=== PATIENT | male | born 1980 | race African-American/Black ===

== ENCOUNTER 2016-09-17 12:27 | Emergency (ER) | payer MEDICAID ==
[~2016-09-17] VITALS: Ht 180.3 cm; Wt 105.0 kg
[~2016-09-17 12:27] MED LIST: ASEN5TAB8; BISA-81; DIVA500T3; FAMO-39; KEPP500; SENN8.6T71; TRAM50TA73
[2016-09-17 13:29] LABS: BASOPHILS % 0.9 % (0.0-2.0); HEMATOCRIT. 41.2 % (42.0-52.0); HEMOGLOBIN. 13.9 g/dL (14.0-18.0); MEAN CORPUSCULAR HEMOGLOBIN 27.2 pg (28.0-32.0); MEAN CORPUSCULAR HGB CONC 33.7 g/dL (31.0-37.0); MEAN CORPUSCULAR VOLUME 80.8 fL (80.0-94.0); MEAN PLATELET VOLUME 8.3 fl (7.4-10.4); MONOCYTES % 7.6 % (2.0-8.0); NEUTROPHILS % 60.5 % (40.0-76.0); PLATELET 268 x1000/uL (130-400); RED CELL DISTRIBUTION WIDTH 13.8 % (11.6-14.6); WHITE BLOOD COUNT 6.4 x1000/uL (4.5-11.0)
[2016-09-17 13:33] LABS: CHLORIDE 106 mEq/L (98-107); INDEX HEMOLYSI 1 (1-3); INDEX ICTERIC 1 (1-4); INDEX LIPEMIC 1 (1-3)
[2016-09-17 13:42] LABS: ACETAMINOPHEN < 2 ug/mL (10-30); ALANINE AMINOTRANSFERASE 23 IU/L (13-61); ALBUMIN 3.6 g/dL (3.4-5.0); ANION GAP 14; CALCIUM 8.7 mg/dL (8.5-10.1); CARBON DIOXIDE 26 mEq/L (21-32); ETHANOL BLOOD < 10 mg/dL; UREA NITROGEN BLOOD 11 mg/dL (7-21); VALPROIC ACID 32.6 ug/mL (50-100); eGFR > 60 mL/min (>60)
[2016-09-17] MEDS ORDERED: VALPROIC ACID 250MG CAPSULE PO ONE (15:45)
[2016-09-17 16:21] LABS: CLARITY URINE CLEAR (CLEAR); COLOR URINE YELLOW (YELLOW); GLUCOSE URINE NEGATIVE (NEGATIVE); KETONES URINE NEGATIVE (NEGATIVE); LEUKOCYTE ESTERASE URINE NEGATIVE (NEGATIVE); NITRITE URINE NEGATIVE (NEGATIVE); OCCULT BLOOD URINE NEGATIVE (NEGATIVE); PH URINE 7.5 (4.5-8.0); PROTEIN URINE NEGATIVE (NEGATIVE); SPECIFIC GRAVITY URINE 1.013 (1.005-1.030); UROBILINOGEN URINE 0.2 E.U./dL (0.2-1.0)
[2016-09-17 17:02] LABS: *AMPHETAMINES SCREEN URINE NEGATIVE (NEGATIVE); *BARBITURATES SCREEN URINE NEGATIVE (NEGATIVE); *BENZODIAZEPINES SCREEN URINE NEGATIVE (NEGATIVE); *COCAINE SCREEN URINE NEGATIVE (NEGATIVE); CANNABINOID URINE SCREEN NEGATIVE (NEGATIVE); ECSTASY MDMA SCREEN URINE NEGATIVE (NEGATIVE); METHADONE URINE SCREEN NEGATIVE (NEGATIVE); OPIATES URINE SCREEN NEGATIVE (NEGATIVE); PHENCYCLIDINE URINE SCREEN NEGATIVE (NEGATIVE)
[2016-09-17 19:43] VITALS: BP 131/84
== END 2016-09-18 12:00 | disposition home or self-care (01) ==
LOC: ER 12:27
DX: R07.89 Other chest pain (principal); F91.9 Conduct disorder, unspecified; F79 Unspecified intellectual disabilities; G40.909 Epilepsy, unspecified, not intractable, without status epilepticus; J45.909 Unspecified asthma, uncomplicated; F31.9 Bipolar disorder, unspecified; F20.9 Schizophrenia, unspecified; K21.9 Gastro-esophageal reflux disease without esophagitis; Z88.0 Allergy status to penicillin; Z88.2 Allergy status to sulfonamides
CPT/HCPCS: 36415; 71010; 80053; 80165; 80305; 80307; 80329; 81003; 85025; 93005; 99285; G0482

== ENCOUNTER 2016-09-24 21:07 | Emergency (ER) | payer MEDICAID ==
[~2016-09-24] VITALS: Ht 177.8 cm; Wt 118.0 kg
[2016-09-24 22:41] LABS: CHLORIDE 105 mEq/L (98-107); INDEX HEMOLYSI 1 (1-3); INDEX ICTERIC 1 (1-4); INDEX LIPEMIC 1 (1-3)
[2016-09-24 22:44] LABS: BASOPHILS % 1.2 % (0.0-2.0); EOSINOPHILS % 8.9 % (0.0-5.0); HEMATOCRIT. 40.5 % (42.0-52.0); HEMOGLOBIN. 13.7 g/dL (14.0-18.0); LYMPHOCYTES % 31.2 % (20.0-50.0); MEAN CORPUSCULAR HEMOGLOBIN 27.2 pg (28.0-32.0); MEAN CORPUSCULAR HGB CONC 33.7 g/dL (31.0-37.0); MEAN CORPUSCULAR VOLUME 80.7 fL (80.0-94.0); MEAN PLATELET VOLUME 8.4 fl (7.4-10.4); MONOCYTES % 5.5 % (2.0-8.0); NEUTROPHILS % 53.2 % (40.0-76.0); PLATELET 268 x1000/uL (130-400); RED BLOOD CELL COUNT 5.01 mill/uL (4.7-6.1); RED CELL DISTRIBUTION WIDTH 13.9 % (11.6-14.6); WHITE BLOOD COUNT 7.6 x1000/uL (4.5-11.0)
[2016-09-24 22:49] LABS: ACETAMINOPHEN < 2 ug/mL (10-30); ANION GAP 13; CALCIUM 8.9 mg/dL (8.5-10.1); CARBON DIOXIDE 25 mEq/L (21-32); ETHANOL BLOOD < 10 mg/dL; UREA NITROGEN BLOOD 11 mg/dL (7-21); VALPROIC ACID 44.1 ug/mL (50-100); eGFR > 60 mL/min (>60)
[2016-09-25] MEDS ORDERED: BACITRACIN ZINC OINT UDPKT TOP ONE (00:45)
[2016-09-25 14:35] VITALS: BP 123/67
[2016-09-25 15:11] LABS: *AMPHETAMINES SCREEN URINE NEGATIVE (NEGATIVE); *BARBITURATES SCREEN URINE NEGATIVE (NEGATIVE); *BENZODIAZEPINES SCREEN URINE NEGATIVE (NEGATIVE); *COCAINE SCREEN URINE NEGATIVE (NEGATIVE); CANNABINOID URINE SCREEN NEGATIVE (NEGATIVE); ECSTASY MDMA SCREEN URINE NEGATIVE (NEGATIVE); METHADONE URINE SCREEN NEGATIVE (NEGATIVE); OPIATES URINE SCREEN NEGATIVE (NEGATIVE); PHENCYCLIDINE URINE SCREEN NEGATIVE (NEGATIVE)
== END 2016-09-25 17:16 | disposition home or self-care (01) ==
LOC: ER 21:07
DX: F28 Other psychotic disorder not due to a substance or known physiological condition (principal); S60.811A Abrasion of right wrist, initial encounter; K21.9 Gastro-esophageal reflux disease without esophagitis; J45.909 Unspecified asthma, uncomplicated; F20.9 Schizophrenia, unspecified; F31.9 Bipolar disorder, unspecified; Z88.0 Allergy status to penicillin; Z88.2 Allergy status to sulfonamides; X58.XXXA Exposure to other specified factors, initial encounter; Y93.89 Activity, other specified; Y92.89 Other specified places as the place of occurrence of the external cause; Y99.8 Other external cause status
CPT/HCPCS: 36415; 71010; 80048; 80165; 80305; 80307; 80329; 85025; 93005; 99285; G0482; Z7610

== ENCOUNTER 2016-10-01 08:02 | Emergency (ER) | payer MEDICAID ==
[~2016-10-01] VITALS: Ht 177.8 cm; Wt 110.0 kg
[2016-10-01 10:11] LABS: CLARITY URINE CLEAR (CLEAR); COLOR URINE YELLOW (YELLOW); GLUCOSE URINE NEGATIVE (NEGATIVE); KETONES URINE NEGATIVE (NEGATIVE); LEUKOCYTE ESTERASE URINE NEGATIVE (NEGATIVE); NITRITE URINE NEGATIVE (NEGATIVE); OCCULT BLOOD URINE NEGATIVE (NEGATIVE); PROTEIN URINE NEGATIVE (NEGATIVE); SPECIFIC GRAVITY URINE 1.016 (1.005-1.030); UROBILINOGEN URINE 0.2 E.U./dL (0.2-1.0)
[2016-10-01 10:12] LABS: CHLORIDE 106 mEq/L (98-107); INDEX HEMOLYSI 1 (1-3); INDEX ICTERIC 1 (1-4); INDEX LIPEMIC 1 (1-3)
[2016-10-01 10:13] LABS: BASOPHILS % 1.4 % (0.0-2.0); EOSINOPHILS % 10.2 % (0.0-5.0); HEMATOCRIT. 42.8 % (42.0-52.0); HEMOGLOBIN. 14.4 g/dL (14.0-18.0); LYMPHOCYTES % 37.8 % (20.0-50.0); MEAN CORPUSCULAR HEMOGLOBIN 27.2 pg (28.0-32.0); MEAN CORPUSCULAR HGB CONC 33.6 g/dL (31.0-37.0); MEAN CORPUSCULAR VOLUME 80.9 fL (80.0-94.0); NEUTROPHILS % 43.6 % (40.0-76.0); PLATELET 233 x1000/uL (130-400); RED BLOOD CELL COUNT 5.29 mill/uL (4.7-6.1); WHITE BLOOD COUNT 5.2 x1000/uL (4.5-11.0)
[2016-10-01 10:21] LABS: ACETAMINOPHEN < 2 ug/mL (10-30); ALANINE AMINOTRANSFERASE 26 IU/L (13-61); ALBUMIN 3.5 g/dL (3.4-5.0); ANION GAP 11; CALCIUM 8.7 mg/dL (8.5-10.1); CARBON DIOXIDE 26 mEq/L (21-32); ETHANOL BLOOD < 10 mg/dL; LIPASE 103 IU/L (73-393); UREA NITROGEN BLOOD 10 mg/dL (7-21); eGFR > 60 mL/min (>60)
[2016-10-01 10:38] LABS: *AMPHETAMINES SCREEN URINE NEGATIVE (NEGATIVE); *BARBITURATES SCREEN URINE NEGATIVE (NEGATIVE); *BENZODIAZEPINES SCREEN URINE NEGATIVE (NEGATIVE); *COCAINE SCREEN URINE NEGATIVE (NEGATIVE); CANNABINOID URINE SCREEN NEGATIVE (NEGATIVE); ECSTASY MDMA SCREEN URINE NEGATIVE (NEGATIVE); METHADONE URINE SCREEN NEGATIVE (NEGATIVE); OPIATES URINE SCREEN NEGATIVE (NEGATIVE); PHENCYCLIDINE URINE SCREEN NEGATIVE (NEGATIVE)
[2016-10-01] MEDS ORDERED: BACITRACIN ZINC OINT UDPKT TOP ONE (12:15)
[2016-10-01 14:46] VITALS: BP 130/72
== END 2016-10-01 15:08 | disposition home or self-care (01) ==
LOC: ER 08:06
DX: R10.9 Unspecified abdominal pain (principal); F20.9 Schizophrenia, unspecified; F31.9 Bipolar disorder, unspecified; Z88.0 Allergy status to penicillin; Z88.2 Allergy status to sulfonamides; Z79.899 Other long term (current) drug therapy; K21.9 Gastro-esophageal reflux disease without esophagitis; R62.50 Unspecified lack of expected normal physiological development in childhood
CPT/HCPCS: 36415; 80053; 80305; 80307; 80329; 81003; 83690; 85025; 99284; G0482

== ENCOUNTER 2016-10-08 12:58 | Emergency (ER) | payer MEDICAID ==
[~2016-10-08] VITALS: Ht 180.3 cm; Wt 120.0 kg
[2016-10-08 12:59] VITALS: BP 104/66
[2016-10-08] MEDS ORDERED: BACITRACIN ZINC OINT UDPKT TOP ONE (14:15)
[2016-10-08] MEDS ORDERED: LIDOCAINE HCL 1% 20ML VIAL (Pyxis) INJ INFIL ONE (14:15)
== END 2016-10-08 19:35 | disposition home or self-care (01) ==
LOC: ER 13:13
DX: S51.011A Laceration without foreign body of right elbow, initial encounter (principal); K21.9 Gastro-esophageal reflux disease without esophagitis; F79 Unspecified intellectual disabilities; F31.9 Bipolar disorder, unspecified; R56.9 Unspecified convulsions; Z88.2 Allergy status to sulfonamides; Z88.0 Allergy status to penicillin; X58.XXXA Exposure to other specified factors, initial encounter; Y93.89 Activity, other specified; Y99.8 Other external cause status; Y92.89 Other specified places as the place of occurrence of the external cause
CPT/HCPCS: 12002; 73080; 99284; J3490; X7700

== ENCOUNTER 2016-12-02 20:55 | Emergency (ER) | payer MEDICAID ==
[~2016-12-02] VITALS: Ht 175.3 cm; Wt 113.0 kg
[2016-12-03 00:13] LABS: CLARITY URINE CLEAR (CLEAR); COLOR URINE YELLOW (YELLOW); GLUCOSE URINE NEGATIVE (NEGATIVE); KETONES URINE NEGATIVE (NEGATIVE); LEUKOCYTE ESTERASE URINE NEGATIVE (NEGATIVE); NITRITE URINE NEGATIVE (NEGATIVE); OCCULT BLOOD URINE NEGATIVE (NEGATIVE); PH URINE 8.5 (4.5-8.0); PROTEIN URINE NEGATIVE (NEGATIVE); SPECIFIC GRAVITY URINE 1.011 (1.005-1.030); UROBILINOGEN URINE 0.2 E.U./dL (0.2-1.0)
[2016-12-03 00:25] LABS: *AMPHETAMINES SCREEN URINE NEGATIVE (NEGATIVE); *BARBITURATES SCREEN URINE NEGATIVE (NEGATIVE); *BENZODIAZEPINES SCREEN URINE NEGATIVE (NEGATIVE); *COCAINE SCREEN URINE NEGATIVE (NEGATIVE); CANNABINOID URINE SCREEN NEGATIVE (NEGATIVE); METHADONE URINE SCREEN NEGATIVE (NEGATIVE); OPIATES URINE SCREEN NEGATIVE (NEGATIVE); PHENCYCLIDINE URINE SCREEN NEGATIVE (NEGATIVE)
[2016-12-03] MEDS ORDERED: IBUPROFEN 600MG TABLET PO ONE (00:45)
[2016-12-03 06:37] VITALS: BP 114/71
== END 2016-12-03 06:45 | disposition home or self-care (01) ==
LOC: ER 21:19
DX: S63.501A Unspecified sprain of right wrist, initial encounter (principal); F20.9 Schizophrenia, unspecified; J45.909 Unspecified asthma, uncomplicated; F31.9 Bipolar disorder, unspecified; K21.9 Gastro-esophageal reflux disease without esophagitis; I10 Essential (primary) hypertension; Z88.0 Allergy status to penicillin; Z88.2 Allergy status to sulfonamides; W22.03XA Walked into furniture, initial encounter; Y93.89 Activity, other specified; Y92.89 Other specified places as the place of occurrence of the external cause; Y99.8 Other external cause status
CPT/HCPCS: 29125; 73110; 73130; 80305; 81003; 99285; Z7610

== ENCOUNTER 2017-01-19 00:41 | Emergency (ER) | payer MEDICAID ==
[~2017-01-19] VITALS: Ht 180.3 cm; Wt 98.0 kg
[2017-01-19 04:50] LABS: BASOPHILS % 1.2 % (0.0-2.0); EOSINOPHILS % 6.2 % (0.0-5.0); HEMOGLOBIN. 12.9 g/dL (14.0-18.0); LYMPHOCYTES % 36.6 % (20.0-50.0); MEAN CORPUSCULAR VOLUME 79.5 fL (80.0-94.0); MEAN PLATELET VOLUME 7.9 fl (7.4-10.4); MONOCYTES % 7.4 % (2.0-8.0); NEUTROPHILS % 48.6 % (40.0-76.0); PLATELET 267 x1000/uL (130-400); RED BLOOD CELL COUNT 4.78 mill/uL (4.7-6.1); RED CELL DISTRIBUTION WIDTH 14.2 % (11.6-14.6)
[2017-01-19 05:02] LABS: CARBON DIOXIDE 26 mEq/L (21-32); CHLORIDE 104 mEq/L (98-107)
[2017-01-19 09:06] VITALS: BP 118/70
== END 2017-01-19 09:21 | disposition home or self-care (01) ==
LOC: ER 00:41
DX: F20.9 Schizophrenia, unspecified (principal); K21.9 Gastro-esophageal reflux disease without esophagitis; I10 Essential (primary) hypertension; J45.909 Unspecified asthma, uncomplicated; Z88.0 Allergy status to penicillin; Z86.73 Personal history of transient ischemic attack (TIA), and cerebral infarction without residual deficits; Z88.2 Allergy status to sulfonamides
CPT/HCPCS: 36415; 80053; 83690; 85025; 99284; Z7610

== ENCOUNTER 2017-02-26 22:57 | Inpatient (IN) | payer MEDICAID ==
[~2017-02-26] VITALS: Ht 182.9 cm; Wt 120.8 kg
[2017-02-27] MEDS ORDERED: SODIUM CHLORIDE 0.9% 1,000 ML IV ONE (03:08)
[2017-02-27] MEDS ORDERED: IBUPROFEN 100MG/5ML UDC PO ONE (03:15)
[2017-02-27 03:44] LABS: MEAN CORPUSCULAR VOLUME 77.9 fL (80.0-94.0); MEAN PLATELET VOLUME 7.6 fl (7.4-10.4); PLATELET 361 x1000/uL (130-400); RED BLOOD CELL COUNT 3.86 mill/uL (4.7-6.1); RED CELL DISTRIBUTION WIDTH 13.8 % (11.6-14.6)
[2017-02-27 03:57] LABS: INR 1.4
[2017-02-27 04:04] LABS: CARBON DIOXIDE 26 mEq/L (21-32); CHLORIDE 98 mEq/L (98-107)
[2017-02-27] MEDS ORDERED: VANCOMYCIN 1 G PREMIX 200 ML IV SCH (06:30)
[2017-02-27] MEDS ORDERED: MORPHINE SULFATE 4 MG/ML CPJ (NOT FOR IM USE) IV ONE (06:30)
[2017-02-27 07:05] LABS: CLARITY URINE CLOUDY (CLEAR); COLOR URINE DARK YELLOW (YELLOW); GLUCOSE URINE NEGATIVE (NEGATIVE); KETONES URINE 1+ (NEGATIVE); LEUKOCYTE ESTERASE URINE 1+ (NEGATIVE); NITRITE URINE NEGATIVE (NEGATIVE); OCCULT BLOOD URINE 3+ (NEGATIVE); PH URINE 5.5 (4.5-8.0); PROTEIN URINE 4+ (NEGATIVE); SPECIFIC GRAVITY URINE 1.023 (1.005-1.030)
[2017-02-27] MEDS ORDERED: METHYLPREDNISOLONE SOD SUCC 125 MG/2 ML VIAL IV ONE (08:00)
[2017-02-27] MEDS ORDERED: DOXYCYCLINE HYCLATE 100 MG/VIAL IV ONE (08:00)
[2017-02-27] MEDS ORDERED: DOXYCYCLINE 100MG in DEXTROSE 5% WATER 100ML IV NR (08:17)
[2017-02-27 08:22] LABS: CREATINE KINASE 253 IU/L (39-308)
[2017-02-27 10:53] LABS: PLATELET ESTIMATE NORMAL
[2017-02-27 13:30] VITALS: BP 126/85
[2017-02-27 14:02] VITALS: BP 125/85
[2017-02-27] MEDS ORDERED: MORPHINE SULFATE 4 MG/ML CPJ (NOT FOR IM USE) IV PRN (15:30)
[2017-02-27] MEDS ORDERED: LORAZEPAM 2MG/ML CPJ IV PRN (15:30)
[2017-02-27 16:00] VITALS: BP 126/80
[2017-02-27] MEDS: METHYLPREDNISOLONE SOD SUCC 40 MG/ML VIAL IV SCH ×2 (16:25→23:04)
[2017-02-27] MEDS: ACETAMINOPHEN 325MG TABLET PO PRN (16:26)
[2017-02-27] MEDS: SODIUM CHLORIDE 0.9% 1,000 ML IV SCH (16:26)
[2017-02-27] MEDS: OXCARBAZEPINE 300MG TABLET PO SCH (16:26)
[2017-02-27] MEDS: RISPERIDONE 3 MG TABLET PO SCH (16:27)
[2017-02-27] MEDS: SUCRALFATE 1G TABLET PO SCH (16:27)
[2017-02-27] MEDS: DIVALPROEX SODIUM 500MG DR TABLET PO SCH (16:27)
[2017-02-27] MEDS ORDERED: VANCOMYCIN 2,000 MG in DEXT 5% WATER 500 ML IV NR (17:00)
[2017-02-27] MEDS: GUANFACINE HCL 1MG TABLET PO SCH (17:00)
[2017-02-27] MEDS: CEFEPIME 2,000 MG in DEXT 5% WATER 100 ML IV SCH (18:25)
[2017-02-27 20:00] VITALS: BP 124/62
[2017-02-28] VITALS: BP 129/82
[2017-02-28 04:00] VITALS: BP 109/64
[2017-02-28] MEDS ORDERED: VANCOMYCIN 750 MG PREMIX 150 ML IV SCH (06:00)
[2017-02-28 06:34] LABS: HEMATOCRIT. 31.7 % (42.0-52.0); HEMOGLOBIN. 10.6 g/dL (14.0-18.0); MEAN CORPUSCULAR HEMOGLOBIN 26.2 pg (28.0-32.0); MEAN CORPUSCULAR VOLUME 78.3 fL (80.0-94.0); MEAN PLATELET VOLUME 7.6 fl (7.4-10.4); PLATELET 399 x1000/uL (130-400); RED BLOOD CELL COUNT 4.05 mill/uL (4.7-6.1); RED CELL DISTRIBUTION WIDTH 14.4 % (11.6-14.6)
[2017-02-28 08:00] VITALS: BP 139/84
[2017-02-28 08:00] LABS: CARBON DIOXIDE 23 mEq/L (21-32); CHLORIDE 102 mEq/L (98-107)
[2017-02-28] MEDS ORDERED: INFLUENZA VIRUS VACCINE 0.5ML SYR IM ONE (08:00)
[2017-02-28] MEDS: DIVALPROEX SODIUM 500MG DR TABLET PO SCH ×2 (08:53→17:41)
[2017-02-28] MEDS: OXCARBAZEPINE 300MG TABLET PO SCH ×3 (08:53→17:41)
[2017-02-28] MEDS: TOPIRAMATE 25MG TABLET PO SCH (08:53)
[2017-02-28] MEDS: SUCRALFATE 1G TABLET PO SCH ×3 (08:53→17:41)
[2017-02-28] MEDS: RISPERIDONE 3 MG TABLET PO SCH (08:53)
[2017-02-28] MEDS: METHYLPREDNISOLONE SOD SUCC 40 MG/ML VIAL IV SCH ×3 (08:54→22:09)
[2017-02-28] MEDS: GUANFACINE HCL 1MG TABLET PO SCH ×3 (08:54→17:00)
[2017-02-28] MEDS: CEFEPIME 2,000 MG in DEXT 5% WATER 100 ML IV SCH ×2 (08:54→17:41)
[2017-02-28] MEDS: OMEPRAZOLE 20MG CAPSULE EXTENDED RELEASE PO SCH (08:54)
[2017-02-28 12:00] VITALS: BP 133/80
[2017-02-28] MEDS: VANCOMYCIN 1250MG in DEXTROSE 5% WATER 250ML IV SCH ×2 (12:48→20:55)
[2017-02-28 15:42] LABS: PLATELET ESTIMATE NORMAL
[2017-02-28 16:00] VITALS: BP 128/80
[2017-02-28 20:00] VITALS: BP 146/88
[2017-02-28] MEDS: ACETAMINOPHEN 325MG TABLET PO PRN (20:55)
[2017-03-01] VITALS: BP 115/61
[2017-03-01 04:00] VITALS: BP 145/91
[2017-03-01] MEDS: CEFEPIME 2,000 MG in DEXT 5% WATER 100 ML IV SCH ×2 (06:33→18:43)
[2017-03-01] MEDS: METHYLPREDNISOLONE SOD SUCC 40 MG/ML VIAL IV SCH ×3 (06:33→23:44)
[2017-03-01] MEDS: ACETAMINOPHEN 325MG TABLET PO PRN (06:33)
[2017-03-01] MEDS: OMEPRAZOLE 20MG CAPSULE EXTENDED RELEASE PO SCH (06:37)
[2017-03-01 06:41] LABS: BASOPHILS % 0.2 % (0.0-2.0); HEMATOCRIT. 28.8 % (42.0-52.0); HEMOGLOBIN. 9.4 g/dL (14.0-18.0); LYMPHOCYTES % 9.2 % (20.0-50.0); MEAN CORPUSCULAR HEMOGLOBIN 25.9 pg (28.0-32.0); MEAN CORPUSCULAR VOLUME 79.2 fL (80.0-94.0); MEAN PLATELET VOLUME 8.3 fl (7.4-10.4); MONOCYTES % 7.2 % (2.0-8.0); NEUTROPHILS % 83.4 % (40.0-76.0); PLATELET 377 x1000/uL (130-400); RED BLOOD CELL COUNT 3.64 mill/uL (4.7-6.1); RED CELL DISTRIBUTION WIDTH 14.4 % (11.6-14.6)
[2017-03-01 07:35] LABS: CARBON DIOXIDE 28 mEq/L (21-32); CHLORIDE 104 mEq/L (98-107)
[2017-03-01 08:00] VITALS: BP 149/91
[2017-03-01] MEDS: SODIUM CHLORIDE 0.9% 1,000 ML IV SCH (08:04)
[2017-03-01] MEDS: SUCRALFATE 1G TABLET PO SCH ×3 (08:05→18:11)
[2017-03-01] MEDS: OXCARBAZEPINE 300MG TABLET PO SCH ×3 (08:06→18:11)
[2017-03-01] MEDS: DIVALPROEX SODIUM 500MG DR TABLET PO SCH ×2 (08:06→18:11)
[2017-03-01] MEDS: TOPIRAMATE 25MG TABLET PO SCH (08:06)
[2017-03-01] MEDS: RISPERIDONE 3 MG TABLET PO SCH (08:06)
[2017-03-01] MEDS: VANCOMYCIN 1250MG in DEXTROSE 5% WATER 250ML IV SCH ×2 (08:19→23:50)
[2017-03-01 12:00] VITALS: BP 158/70
[2017-03-01 16:00] VITALS: BP 143/94
[2017-03-01 17:12] LABS: ANTI-NUCLEAR ANTIBODIES DIRECT Negative (Negative)
[2017-03-01] MEDS: GUANFACINE HCL 2 MG TABLET PO SCH (18:11)
[2017-03-01 19:44] LABS: FOLIC ACID (FOLATE) SERUM 6.6 ng/mL (>5.38)
[2017-03-01 20:00] VITALS: BP 129/77
[2017-03-01] MEDS ORDERED: GUANFACINE 2 MG PO SCH (21:00)
[2017-03-02] VITALS: BP 136/85
[2017-03-02] MEDS: ACETAMINOPHEN 325MG TABLET PO PRN (02:20)
[2017-03-02 04:00] VITALS: BP 128/76
[2017-03-02] MEDS: METHYLPREDNISOLONE SOD SUCC 40 MG/ML VIAL IV SCH ×2 (05:20→15:17)
[2017-03-02] MEDS: CEFEPIME 2,000 MG in DEXT 5% WATER 100 ML IV SCH (05:28)
[2017-03-02] MEDS: OMEPRAZOLE 20MG CAPSULE EXTENDED RELEASE PO SCH (06:38)
[2017-03-02 08:00] VITALS: BP 141/86
[2017-03-02] MEDS: GUANFACINE HCL 2 MG TABLET PO SCH ×3 (09:05→17:48)
[2017-03-02] MEDS: DIVALPROEX SODIUM 500MG DR TABLET PO SCH ×2 (09:06→17:48)
[2017-03-02] MEDS: OXCARBAZEPINE 300MG TABLET PO SCH ×3 (09:06→17:48)
[2017-03-02] MEDS: TOPIRAMATE 25MG TABLET PO SCH (09:06)
[2017-03-02] MEDS: SUCRALFATE 1G TABLET PO SCH ×3 (09:06→17:47)
[2017-03-02] MEDS: RISPERIDONE 3 MG TABLET PO SCH (09:06)
[2017-03-02] MEDS: VANCOMYCIN 1,750 MG in DEXT 5% WATER 500 ML IV SCH ×2 (09:07→22:44)
[2017-03-02] MEDS: SODIUM CHLORIDE 0.9% 1,000 ML IV SCH (10:01)
[2017-03-02 10:07] LABS: COMPLEMENT C3 43 mg/dL (82-167)
[2017-03-02 12:00] VITALS: BP 172/91
[2017-03-02 16:00] VITALS: BP 154/96
[2017-03-02 20:00] VITALS: BP 148/93
[2017-03-03] VITALS: BP 138/81
[2017-03-03 04:00] VITALS: BP 143/89
[2017-03-03 08:00] VITALS: BP 143/94
[2017-03-03 09:00] LABS: HEMATOCRIT. 31.4 % (42.0-52.0); HEMOGLOBIN. 10.5 g/dL (14.0-18.0); MEAN CORPUSCULAR HEMOGLOBIN 26.6 pg (28.0-32.0); MEAN CORPUSCULAR VOLUME 79.6 fL (80.0-94.0); MEAN PLATELET VOLUME 7.9 fl (7.4-10.4); PLATELET 391 x1000/uL (130-400); RED BLOOD CELL COUNT 3.94 mill/uL (4.7-6.1); RED CELL DISTRIBUTION WIDTH 14.2 % (11.6-14.6)
[2017-03-03 09:28] LABS: CARBON DIOXIDE 30 mEq/L (21-32); CHLORIDE 103 mEq/L (98-107)
[2017-03-03] MEDS: GUANFACINE HCL 2 MG TABLET PO SCH ×3 (09:29→18:24)
[2017-03-03] MEDS: DIVALPROEX SODIUM 500MG DR TABLET PO SCH ×2 (09:29→18:24)
[2017-03-03] MEDS: OMEPRAZOLE 20MG CAPSULE EXTENDED RELEASE PO SCH (09:29)
[2017-03-03] MEDS: TOPIRAMATE 25MG TABLET PO SCH (09:30)
[2017-03-03] MEDS: RISPERIDONE 3 MG TABLET PO SCH (09:30)
[2017-03-03] MEDS: OXCARBAZEPINE 300MG TABLET PO SCH ×3 (09:30→18:24)
[2017-03-03] MEDS: PREDNISONE 20MG TABLET PO SCH (09:30)
[2017-03-03] MEDS: SUCRALFATE 1G TABLET PO SCH ×3 (09:33→18:24)
[2017-03-03] MEDS: VANCOMYCIN 1,750 MG in DEXT 5% WATER 500 ML IV SCH ×2 (10:42→20:37)
[2017-03-03 12:00] VITALS: BP 150/80
[2017-03-03 13:26] LABS: PLATELET ESTIMATE NORMAL
[2017-03-03 16:00] VITALS: BP 149/74
[2017-03-03 20:00] VITALS: BP 157/87
[2017-03-04] VITALS: BP 146/76
[2017-03-04 04:00] VITALS: BP 140/72
[2017-03-04] MEDS: OMEPRAZOLE 20MG CAPSULE EXTENDED RELEASE PO SCH (06:30)
[2017-03-04 08:00] VITALS: BP 157/69
[2017-03-04 12:00] VITALS: BP 140/80
[2017-03-04] MEDS: SUCRALFATE 1G TABLET PO SCH ×3 (12:50→18:56)
[2017-03-04] MEDS: GUANFACINE HCL 2 MG TABLET PO SCH ×3 (13:00→18:54)
[2017-03-04] MEDS ORDERED: CEFTRIAXONE 2 G PREMIX 50 ML IV SCH (13:00)
[2017-03-04] MEDS: OXCARBAZEPINE 300MG TABLET PO SCH ×3 (13:00→18:55)
[2017-03-04] MEDS ORDERED: MORPHINE SULFATE 2 MG/ML CPJ (NOT FOR IM USE) IV PRN (13:00)
[2017-03-04 16:00] VITALS: BP 154/81
[2017-03-04] MEDS: ACETAMINOPHEN 325MG TABLET PO PRN (17:00)
[2017-03-04] MEDS: RISPERIDONE 3 MG TABLET PO SCH (17:01)
[2017-03-04] MEDS: DIVALPROEX SODIUM 500MG DR TABLET PO SCH ×2 (17:01→18:55)
[2017-03-04] MEDS: TOPIRAMATE 25MG TABLET PO SCH (17:01)
[2017-03-04] MEDS: PREDNISONE 20MG TABLET PO SCH (17:01)
[2017-03-04] MEDS: CEFTRIAXONE 2 G in DEXTROSE 5% WATER 50 ML IV SCH (17:09)
[2017-03-04 20:00] VITALS: BP 160/86
[2017-03-05] VITALS: BP 138/79
[2017-03-05 04:00] VITALS: BP 153/99
[2017-03-05] MEDS: OMEPRAZOLE 20MG CAPSULE EXTENDED RELEASE PO SCH (06:14)
[2017-03-05 08:00] VITALS: BP 130/76
[2017-03-05] MEDS: SUCRALFATE 1G TABLET PO SCH ×3 (09:58→18:10)
[2017-03-05] MEDS: OXCARBAZEPINE 300MG TABLET PO SCH ×3 (09:58→18:10)
[2017-03-05] MEDS: TOPIRAMATE 25MG TABLET PO SCH (09:58)
[2017-03-05] MEDS: PREDNISONE 20MG TABLET PO SCH (09:58)
[2017-03-05] MEDS: RISPERIDONE 3 MG TABLET PO SCH (09:58)
[2017-03-05] MEDS: DIVALPROEX SODIUM 500MG DR TABLET PO SCH ×2 (09:58→18:10)
[2017-03-05] MEDS: GUANFACINE HCL 2 MG TABLET PO SCH ×3 (09:58→18:10)
[2017-03-05 12:00] VITALS: BP 145/72
[2017-03-05 12:34] LABS: BASOPHILS % 0.9 % (0.0-2.0); HEMOGLOBIN. 10.4 g/dL (14.0-18.0); LYMPHOCYTES % 20.5 % (20.0-50.0); MEAN CORPUSCULAR HEMOGLOBIN 26.1 pg (28.0-32.0); MEAN CORPUSCULAR VOLUME 80.1 fL (80.0-94.0); MEAN PLATELET VOLUME 8.8 fl (7.4-10.4); MONOCYTES % 7.2 % (2.0-8.0); NEUTROPHILS % 69.4 % (40.0-76.0); PLATELET 307 x1000/uL (130-400); RED BLOOD CELL COUNT 3.99 mill/uL (4.7-6.1); RED CELL DISTRIBUTION WIDTH 14.1 % (11.6-14.6)
[2017-03-05 13:07] LABS: CARBON DIOXIDE 30 mEq/L (21-32); CHLORIDE 103 mEq/L (98-107)
[2017-03-05] MEDS: CEFTRIAXONE 2 G in DEXTROSE 5% WATER 50 ML IV SCH (14:42)
[2017-03-05 16:00] VITALS: BP 139/88
[2017-03-05 20:00] VITALS: BP 131/71
[2017-03-06] VITALS: BP 161/98
[2017-03-06 04:00] VITALS: BP 130/82
[2017-03-06] MEDS: OMEPRAZOLE 20MG CAPSULE EXTENDED RELEASE PO SCH (06:29)
[2017-03-06 07:12] LABS: HEMATOCRIT. 35.2 % (42.0-52.0); HEMOGLOBIN. 11.5 g/dL (14.0-18.0); MEAN CORPUSCULAR HEMOGLOBIN 26.2 pg (28.0-32.0); MEAN CORPUSCULAR VOLUME 80.2 fL (80.0-94.0); MEAN PLATELET VOLUME 7.9 fl (7.4-10.4); PLATELET 415 x1000/uL (130-400); RED BLOOD CELL COUNT 4.39 mill/uL (4.7-6.1); RED CELL DISTRIBUTION WIDTH 14.2 % (11.6-14.6)
[2017-03-06 07:53] LABS: CARBON DIOXIDE 32 mEq/L (21-32); CHLORIDE 103 mEq/L (98-107)
[2017-03-06 08:00] VITALS: BP 130/81
[2017-03-06] MEDS: GUANFACINE HCL 2 MG TABLET PO SCH ×3 (09:04→16:52)
[2017-03-06] MEDS: RISPERIDONE 3 MG TABLET PO SCH (09:04)
[2017-03-06] MEDS: SUCRALFATE 1G TABLET PO SCH ×3 (09:05→16:52)
[2017-03-06] MEDS: PREDNISONE 20MG TABLET PO SCH (09:05)
[2017-03-06] MEDS: DIVALPROEX SODIUM 500MG DR TABLET PO SCH ×2 (09:05→16:52)
[2017-03-06] MEDS: OXCARBAZEPINE 300MG TABLET PO SCH ×3 (09:05→16:52)
[2017-03-06] MEDS: TOPIRAMATE 25MG TABLET PO SCH (09:05)
[2017-03-06 09:53] LABS: PLATELET ESTIMATE SLIGHTLY INCREASED
[2017-03-06 12:00] VITALS: BP 112/79
[2017-03-06] MEDS: CEFTRIAXONE 2 G in DEXTROSE 5% WATER 50 ML IV SCH (14:37)
[2017-03-06 16:00] VITALS: BP 145/88
[2017-03-06 18:41] VITALS: BP 145/88
== END 2017-03-06 19:13 | disposition home health service (06) | DRG 720 ==
LOC: ER 23:21 → 6EST 02-27 07:08 → EDBEDREQ 02-27 07:10 → ENRESERV 02-27 09:44 → ER 02-27 12:46
PROVIDERS: ADMIT Internal Medicine; ATTEND Internal Medicine
PROC: 02HV33Z Insertion of Infusion Device into Superior Vena Cava, Percutaneous Approach (ICD-10-PCS; principal; 2017-03-01)
PROC: B5181ZA Fluoroscopy of Superior Vena Cava using Low Osmolar Contrast, Guidance (ICD-10-PCS; 2017-03-01)
PROC: B548ZZA Ultrasonography of Superior Vena Cava, Guidance (ICD-10-PCS; 2017-03-01)
DX: A41.9 Sepsis, unspecified organism (principal); E43 Unspecified severe protein-calorie malnutrition; G93.49 Other encephalopathy; N17.9 Acute kidney failure, unspecified; H70.13 Chronic mastoiditis, bilateral; H66.90 Otitis media, unspecified, unspecified ear; G40.909 Epilepsy, unspecified, not intractable, without status epilepticus; F20.9 Schizophrenia, unspecified; F31.9 Bipolar disorder, unspecified; H91.90 Unspecified hearing loss, unspecified ear; I12.9 Hypertensive chronic kidney disease with stage 1 through stage 4 chronic kidney disease, or unspecified chronic kidney disease; J45.909 Unspecified asthma, uncomplicated; K21.9 Gastro-esophageal reflux disease without esophagitis; N18.9 Chronic kidney disease, unspecified; D72.821 Monocytosis (symptomatic); H60.92 Unspecified otitis externa, left ear; N39.0 Urinary tract infection, site not specified; D63.1 Anemia in chronic kidney disease; E66.01 Morbid (severe) obesity due to excess calories; J44.9 Chronic obstructive pulmonary disease, unspecified; Z86.73 Personal history of transient ischemic attack (TIA), and cerebral infarction without residual deficits; Z88.0 Allergy status to penicillin; Z88.2 Allergy status to sulfonamides; Z79.899 Other long term (current) drug therapy; Z68.36 Body mass index [BMI] 36.0-36.9, adult
CPT/HCPCS: 36415; 36569; 70486; 71010; 76770; 76937; 77001; 80048; 80053; 80061; 80202; 81001; 82550; 82570; 82607; 82728; 82746; 83010; 83540; 83550; 83605; 84156; 84443; 85025; 85044; 85610; 85651; 85730; 86038; 86160; 87040; 87070; 87077; 87086; 87205; 90686; 96361; 96365; 96375; 99285; C1725; C1893; J0692; J0696; J2060; J2920; J2930; J3370; J3490; J7030; J7050; J7060; J7512

== ENCOUNTER 2017-03-17 18:55 | Emergency (ER) | payer MEDICAID ==
[~2017-03-17] VITALS: Ht 180.3 cm; Wt 96.0 kg
[2017-03-17 23:18] VITALS: BP 141/95
== END 2017-03-17 23:26 | disposition home or self-care (01) ==
LOC: ER 19:01
DX: Z45.2 Encounter for adjustment and management of vascular access device (principal); K21.9 Gastro-esophageal reflux disease without esophagitis; I10 Essential (primary) hypertension; F20.9 Schizophrenia, unspecified; J45.909 Unspecified asthma, uncomplicated; F31.9 Bipolar disorder, unspecified; Z88.0 Allergy status to penicillin; Z88.2 Allergy status to sulfonamides; G80.9 Cerebral palsy, unspecified; Z86.73 Personal history of transient ischemic attack (TIA), and cerebral infarction without residual deficits
CPT/HCPCS: 99281

== ENCOUNTER 2017-03-25 12:30 | Emergency (ER) | payer MEDICAID ==
[~2017-03-25] VITALS: Ht 175.3 cm; Wt 100.0 kg
[2017-03-25 13:01] LABS: BASOPHILS % 0.5 % (0.0-2.0); EOSINOPHILS % 0.4 % (0.0-5.0); HEMATOCRIT. 36.6 % (42.0-52.0); HEMOGLOBIN. 12.3 g/dL (14.0-18.0); LYMPHOCYTES % 7.1 % (20.0-50.0); MEAN CORPUSCULAR HEMOGLOBIN 26.6 pg (28.0-32.0); MEAN CORPUSCULAR VOLUME 78.9 fL (80.0-94.0); MEAN PLATELET VOLUME 7.7 fl (7.4-10.4); PLATELET 303 x1000/uL (130-400); RED BLOOD CELL COUNT 4.63 mill/uL (4.7-6.1); RED CELL DISTRIBUTION WIDTH 14.7 % (11.6-14.6)
[2017-03-25 13:23] LABS: CARBON DIOXIDE 24 mEq/L (21-32); CHLORIDE 106 mEq/L (98-107); ETHANOL BLOOD < 10 mg/dL
[2017-03-25] MEDS ORDERED: DIVALPROEX SODIUM 250MG ER TABLET PO ONE (17:45)
[2017-03-25 18:20] VITALS: BP 122/80
== END 2017-03-25 18:20 | disposition home or self-care (01) ==
LOC: ER 12:35
DX: R56.9 Unspecified convulsions (principal); I10 Essential (primary) hypertension; K21.9 Gastro-esophageal reflux disease without esophagitis; J45.909 Unspecified asthma, uncomplicated; Z88.0 Allergy status to penicillin; Z86.73 Personal history of transient ischemic attack (TIA), and cerebral infarction without residual deficits; Z88.2 Allergy status to sulfonamides
CPT/HCPCS: 36415; 80053; 80165; 85025; 99284; G0482

== ENCOUNTER 2018-11-23 23:34 | Emergency (ER) | payer MEDICAID ==
[~2018-11-23] VITALS: Ht 177.8 cm; Wt 118.0 kg
[~2018-11-23 23:34] MED LIST changes: -ASEN5TAB8; -BISA-81; +DIPH50CA4 PO; -DIVA500T3; +DIVA500T3 PO; -FAMO-39; +GUAN1TAB PO; -KEPP500; +OMEGA 3 ETHYL PO; +OMEP20TA2 PO; +OXCA300T31 PO; +RISP1TAB26 PO; +RISP3TAB13 PO; -SENN8.6T71; +SUCR1TAB30 PO; +TOPI25TA48 PO; -TRAM50TA73
[2018-11-24 02:06] LABS: CHLORIDE 99 mEq/L (98-107)
[2018-11-24 02:08] LABS: BASOPHILS % 0.4 % (0.0-2.0); EOSINOPHILS % 8.9 % (0.0-5.0); HEMATOCRIT. 38.3 % (42.0-52.0); HEMOGLOBIN. 13.1 g/dL (14.0-18.0); LYMPHOCYTES % 39.6 % (20.0-50.0); MEAN CORPUSCULAR VOLUME 81.9 fL (80.0-94.0); MEAN PLATELET VOLUME 8.4 fl (7.4-10.4); MONOCYTES % 7.8 % (2.0-8.0); NEUTROPHILS % 43.3 % (40.0-76.0); PLATELET 252 x1000/uL (130-400); RED BLOOD CELL COUNT 4.68 mill/uL (4.7-6.1); RED CELL DISTRIBUTION WIDTH 12.1 % (11.6-14.6)
[2018-11-24 02:12] LABS: CLARITY URINE CLEAR (CLEAR); COLOR URINE YELLOW (YELLOW); KETONES URINE NEGATIVE (NEGATIVE); LEUKOCYTE ESTERASE URINE NEGATIVE (NEGATIVE); NITRITE URINE NEGATIVE (NEGATIVE); OCCULT BLOOD URINE NEGATIVE (NEGATIVE); PROTEIN URINE NEGATIVE (NEGATIVE); SPECIFIC GRAVITY URINE 1.012 (1.005-1.030)
[2018-11-24 03:30] VITALS: BP 117/64
[2018-11-24] MEDS ORDERED: FAMOTIDINE 20MG/2ML VIAL IV STA (06:20)
[2018-11-24] MEDS ORDERED: SODIUM CHLORIDE 0.9% 1,000 ML IV ONE (06:20)
[2018-11-24] MEDS ORDERED: ONDANSETRON HCL 4MG/2ML INJ IV STA (06:20)
== END 2018-11-24 07:01 | disposition left against medical advice (07) ==
LOC: ER 23:34
DX: R10.13 Epigastric pain (principal); E11.65 Type 2 diabetes mellitus with hyperglycemia; G40.909 Epilepsy, unspecified, not intractable, without status epilepticus; F20.9 Schizophrenia, unspecified; K21.9 Gastro-esophageal reflux disease without esophagitis; F79 Unspecified intellectual disabilities; Z88.0 Allergy status to penicillin; Z88.2 Allergy status to sulfonamides
CPT/HCPCS: 36415; 80053; 80165; 81003; 83690; 85025; 99283; J7030

== ENCOUNTER 2022-02-26 16:19 | Emergency (ER) | payer MEDICAID ==
[~2022-02-26] VITALS: Ht 177.8 cm; Wt 91.0 kg
[~2022-02-26 16:19] MED LIST changes: -DIPH50CA4 PO; +DIPH50CA41 PO; -OMEP20TA2 PO; +OMEP20TA23 PO; -RISP1TAB26 PO; +RISP1TAB97 PO; -RISP3TAB13 PO; +RISP3TAB62 PO
[2022-02-26] MEDS: ACETAMINOPHEN 325MG TABLET PO NR ×3 (17:28→18:37)
[2022-02-26 17:36] LABS: BASOPHILS % 0.9 % (0.0-2.0); EOSINOPHILS % 11.3 % (0.0-5.0); HEMATOCRIT. 35.5 % (42.0-52.0); HEMOGLOBIN. 12.3 g/dL (14.0-18.0); MEAN CORPUSCULAR HEMOGLOBIN 28.6 pg (28.0-32.0); MEAN CORPUSCULAR VOLUME 82.7 fL (80.0-94.0); MONOCYTES % 7.4 % (2.0-8.0); NEUTROPHILS % 44.4 % (40.0-76.0); PLATELET 198 x1000/uL (130-400); RED BLOOD CELL COUNT 4.29 mill/uL (4.7-6.1); RED CELL DISTRIBUTION WIDTH 12.8 % (11.6-14.6)
[2022-02-26 17:41] LABS: CHLORIDE 103 mEq/L (98-107)
[2022-02-26 17:49] LABS: ETHANOL BLOOD < 10 mg/dL
[2022-02-26 18:39] LABS: INR 1.1; PROTHROMBIN TIME 11.4 sec (9.6-11.0)
[2022-02-27] MEDS ORDERED: HALOPERIDOL LACTATE 5MG/ML VIAL IM ONE (11:45)
[2022-02-27] MEDS ORDERED: LORAZEPAM 2MG/ML CPJ IV ONE (11:45)
[2022-02-27] MEDS ORDERED: DIPHENHYDRAMINE 50MG/ML VIAL IV ONE (11:45)
[2022-02-27 17:00] VITALS: BP 115/66
== END 2022-02-27 17:00 | disposition home or self-care (01) ==
LOC: ER 16:19
DX: R10.30 Lower abdominal pain, unspecified (principal); R45.1 Restlessness and agitation; R62.50 Unspecified lack of expected normal physiological development in childhood; Z20.822 Contact with and (suspected) exposure to COVID-19; F31.9 Bipolar disorder, unspecified; K21.9 Gastro-esophageal reflux disease without esophagitis; F20.9 Schizophrenia, unspecified; Z79.899 Other long term (current) drug therapy
CPT/HCPCS: 36415; 71045; 74176; 80053; 80307; 80320; 80329; 83690; 85025; 85610; 99285; C9803; U0003; U0005; J1200; J1630; J2060; G0480

== ENCOUNTER 2022-04-18 13:50 | Emergency (ER) | payer MEDICAID ==
[~2022-04-18] VITALS: Ht 177.8 cm; Wt 90.0 kg
[2022-04-18] MEDS ORDERED: NA PHOS,M-B/NA PHOS,DI-BA ENEMA 118ML PR NR (16:45)
[2022-04-18 17:45] LABS: CLARITY URINE CLEAR (CLEAR); COLOR URINE YELLOW (YELLOW); KETONES URINE NEGATIVE (NEGATIVE); LEUKOCYTE ESTERASE URINE NEGATIVE (NEGATIVE); NITRITE URINE NEGATIVE (NEGATIVE); OCCULT BLOOD URINE NEGATIVE (NEGATIVE); PH URINE 7.5 (4.5-8.0); PROTEIN URINE NEGATIVE (NEGATIVE); SPECIFIC GRAVITY URINE 1.016 (1.005-1.030); UROBILINOGEN URINE 0.2 E.U./dL (0.2-1.0)
[2022-04-18] MEDS ORDERED: POLY17PO3 MT (19:16)
[2022-04-18 21:22] VITALS: BP 143/68
== END 2022-04-18 22:05 | disposition home or self-care (01) ==
LOC: ER 13:50
DX: K59.00 Constipation, unspecified (principal); K21.9 Gastro-esophageal reflux disease without esophagitis; F20.9 Schizophrenia, unspecified; F41.9 Anxiety disorder, unspecified; F79 Unspecified intellectual disabilities; G40.909 Epilepsy, unspecified, not intractable, without status epilepticus; Z88.2 Allergy status to sulfonamides; Z88.0 Allergy status to penicillin
CPT/HCPCS: 74018; 81003; 82962; 99285

== ENCOUNTER 2022-07-23 21:40 | Emergency (ER) | payer MEDICAID ==
[~2022-07-23] VITALS: Ht 177.8 cm; Wt 106.6 kg
[~2022-07-23 21:40] MED LIST changes: +POLY17PO3 MT
[2022-07-24] MEDS ORDERED: HYDR26CR2 TP (01:45)
[2022-07-24] MEDS ORDERED: SENN-257 MT (01:45)
[2022-07-24] MEDS ORDERED: INUL2TAB5 MT (01:45)
[2022-07-24 01:59] VITALS: BP 122/76
== END 2022-07-24 02:04 | disposition home or self-care (01) ==
LOC: ER 21:51
DX: K64.9 Unspecified hemorrhoids (principal); F31.9 Bipolar disorder, unspecified; E11.9 Type 2 diabetes mellitus without complications; K21.9 Gastro-esophageal reflux disease without esophagitis; F20.9 Schizophrenia, unspecified; Z79.899 Other long term (current) drug therapy
CPT/HCPCS: 99282

== ENCOUNTER 2023-01-31 17:30 | Emergency (ER) | payer MEDICAID ==
[~2023-01-31] VITALS: Ht 175.3 cm; Wt 113.0 kg
[~2023-01-31 17:30] MED LIST changes: +HYDR26CR2 TP; +INUL2TAB5 MT; +SENN-257 MT
[2023-01-31 17:53] VITALS: BP 140/92; PULSE 100; RESP 16; TEMP 98.8; O2SAT 99
[2023-01-31] MEDS ORDERED: ONDANSETRON 4MG ODT PO ONE (18:15)
[2023-01-31 20:23] LABS: BASOPHILS % 0.8 % (0.0-2.0); EOSINOPHILS % 4.9 % (0.0-5.0); HEMATOCRIT. 39.8 % (42.0-52.0); HEMOGLOBIN. 13.1 g/dL (14.0-18.0); LYMPHOCYTES % 25.6 % (20.0-50.0); MEAN CORPUSCULAR HEMOGLOBIN 26.9 pg (28.0-32.0); MEAN CORPUSCULAR VOLUME 81.7 fL (80.0-94.0); MEAN PLATELET VOLUME 7.6 fl (7.4-10.4); MONOCYTES % 5.8 % (2.0-8.0); NEUTROPHILS % 62.9 % (40.0-76.0); PLATELET 275 x1000/uL (130-400); RED BLOOD CELL COUNT 4.87 mill/uL (4.7-6.1); RED CELL DISTRIBUTION WIDTH 13.5 % (11.6-14.6); WHITE BLOOD COUNT 7.1 x1000/uL (4.5-11.0)
[2023-01-31 20:36] LABS: CHLORIDE 103 mEq/L (98-107); INDEX HEMOLYSI 1 (1-3); INDEX ICTERIC 1 (1-4); INDEX LIPEMIC 1 (1-3); POTASSIUM 3.5 mEq/L (3.5-5.1); SODIUM 135 mEq/L (136-145)
[2023-01-31 20:45] LABS: ALBUMIN 3.7 g/dL (3.4-5.0); CALCIUM 8.8 mg/dL (8.5-10.1); CARBON DIOXIDE 28 mEq/L (21-32); ETHANOL BLOOD < 10 mg/dL (-10); GLUCOSE 167 mg/dL (70-105); UREA NITROGEN BLOOD 8 mg/dL (7-21)
[2023-01-31 20:49] LABS: ALANINE AMINOTRANSFERASE 31 IU/L (13-61); ASPARTATE AMINOTRANSFERASE 14 IU/L (15-37); BILIRUBIN TOTAL 0.3 mg/dL (0.1-1.0); CREATININE 0.6 mg/dL (0.6-1.3); PROTEIN TOTAL 8.3 g/dL (6.0-8.3)
[2023-01-31] MEDS ORDERED: ONDANSETRON 4MG ODT PO NR (23:45)
[2023-01-31] MEDS ORDERED: ONDA4TAB11 PO (23:58)
[2023-01-31] MEDS ORDERED: DOCU-150 MT ×2 (23:58)
[2023-02-01] MEDS ORDERED: POLY17PO3 MT
[2023-02-02] MEDS ORDERED: IBUP-2029 MT (14:38)
== END 2023-02-01 00:24 | disposition home or self-care (01) ==
LOC: ER 17:30
DX: K59.00 Constipation, unspecified (principal); R11.2 Nausea with vomiting, unspecified; F31.9 Bipolar disorder, unspecified; E11.9 Type 2 diabetes mellitus without complications; K21.9 Gastro-esophageal reflux disease without esophagitis; F20.9 Schizophrenia, unspecified; Z88.0 Allergy status to penicillin; Z88.2 Allergy status to sulfonamides; Z79.899 Other long term (current) drug therapy
CPT/HCPCS: 80053; 80320; 83690; 85025; 36415; 74176; 99284; Q0162; G0480

== ENCOUNTER 2023-02-02 13:31 | Emergency (ER) | payer MEDICAID ==
[~2023-02-02] VITALS: Ht 175.3 cm; Wt 91.0 kg
[~2023-02-02 13:31] MED LIST changes: +ONDA4TAB11 PO
[2023-02-02 13:42] VITALS: TEMP 98.6; O2SAT 98
[2023-02-02 13:45] VITALS: BP 142/89; PULSE 98; RESP 18
[2023-02-02] MEDS ORDERED: IBUPROFEN 600MG TABLET PO ONE (13:45)
[2023-02-02] MEDS ORDERED: IBUP-2029 MT (14:38)
== END 2023-02-02 15:30 | disposition home or self-care (01) ==
LOC: ER 13:31
DX: S60.222A Contusion of left hand, initial encounter (principal); E11.9 Type 2 diabetes mellitus without complications; Z88.0 Allergy status to penicillin; Z88.2 Allergy status to sulfonamides; Z79.899 Other long term (current) drug therapy; Z86.59 Personal history of other mental and behavioral disorders; X58.XXXA Exposure to other specified factors, initial encounter; Y93.89 Activity, other specified; Y92.89 Other specified places as the place of occurrence of the external cause; Y99.8 Other external cause status
CPT/HCPCS: 73110; 73130; 99284

== ENCOUNTER 2023-09-17 09:51 | Emergency (ER) | payer MEDICAID ==
[~2023-09-17] VITALS: Ht 172.7 cm; Wt 80.0 kg
[~2023-09-17 09:51] MED LIST changes: -DIPH50CA41 PO; +DIVA-18 PO; -DIVA500T3 PO; +GLIP5TAB22 MT; -GUAN1TAB PO; +HALO5TAB2 PO; -HYDR26CR2 TP; -INUL2TAB5 MT; +METF-414 PO; -OMEGA 3 ETHYL PO; -OMEP20TA23 PO; -ONDA4TAB11 PO; -OXCA300T31 PO; -POLY17PO3 MT; +QUET50TA PO; +RISP1 PO; -RISP1TAB97 PO; -RISP3TAB62 PO; -SENN-257 MT; -SUCR1TAB30 PO; -TOPI25TA48 PO; +TRAZ-251 PO
[2023-09-17] MEDS: TETANUS, DIPHTHERIA, PERTUSSIS VAC/PF 0.5ML (>10YR OLD) IM ONE (11:15)
[2023-09-17] MEDS: LIDOCAINE HCL/PF 1% 10 MG/ML 5ML VIAL INFIL ONE (11:15)
[2023-09-17 12:01] LABS: BASOPHILS % 1.3 % (0.0-2.0); EOSINOPHILS % 9.6 % (0.0-5.0); HEMATOCRIT. 35.5 % (42.0-52.0); HEMOGLOBIN. 11.6 g/dL (14.0-18.0); LYMPHOCYTES % 29.2 % (20.0-50.0); MEAN CORPUSCULAR HEMOGLOBIN 27.4 pg (28.0-32.0); MEAN CORPUSCULAR HGB CONC 32.8 g/dL (31.0-37.0); MEAN CORPUSCULAR VOLUME 83.5 fL (80.0-94.0); MEAN PLATELET VOLUME 7.4 fl (7.4-10.4); MONOCYTES % 6.4 % (2.0-8.0); NEUTROPHILS % 53.5 % (40.0-76.0); PLATELET 405 x1000/uL (130-400); RED BLOOD CELL COUNT 4.25 mill/uL (4.7-6.1); RED CELL DISTRIBUTION WIDTH 15.3 % (11.6-14.6); WHITE BLOOD COUNT 5.6 x1000/uL (4.5-11.0)
[2023-09-17 12:08] LABS: CHLORIDE 103 mEq/L (98-107); POTASSIUM 4.5 mEq/L (3.5-5.1); SODIUM 136 mEq/L (136-145)
[2023-09-17 12:10] LABS: CALCIUM 9.1 mg/dL (8.7-10.4); CARBON DIOXIDE 27 mEq/L (21-32)
[2023-09-17 12:15] LABS: CREATININE 0.9 mg/dL (0.6-1.3); GLUCOSE 141 mg/dL (70-105); UREA NITROGEN BLOOD 11 mg/dL (9-23)
[2023-09-17 12:17] LABS: ALANINE AMINOTRANSFERASE 22 IU/L (10-49); ALBUMIN 4.4 g/dL (3.2-4.8); ASPARTATE AMINOTRANSFERASE 18 IU/L (<34); BILIRUBIN TOTAL 0.2 mg/dL (0.1-1.0); PROTEIN TOTAL 8.8 g/dL (6.0-8.3)
[2023-09-17 12:33] LABS: ACETAMINOPHEN < 2 ug/mL (10-30)
[2023-09-17 12:42] LABS: ETHANOL BLOOD < 10 mg/dL (<10)
[2023-09-17 15:55] LABS: CLARITY URINE CLEAR (CLEAR); COLOR URINE YELLOW (YELLOW); GLUCOSE URINE NEGATIVE (NEGATIVE); KETONES URINE NEGATIVE (NEGATIVE); LEUKOCYTE ESTERASE URINE NEGATIVE (NEGATIVE); NITRITE URINE NEGATIVE (NEGATIVE); OCCULT BLOOD URINE NEGATIVE (NEGATIVE); PROTEIN URINE NEGATIVE (NEGATIVE); SPECIFIC GRAVITY URINE 1.014 (1.005-1.030); UROBILINOGEN URINE 0.2 E.U./dL (0.2-1.0)
[2023-09-17 16:35] LABS: *AMPHETAMINES SCREEN URINE NEGATIVE (NEGATIVE); *BARBITURATES SCREEN URINE NEGATIVE (NEGATIVE); *BENZODIAZEPINES SCREEN URINE NEGATIVE (NEGATIVE); *COCAINE SCREEN URINE NEGATIVE (NEGATIVE); METHADONE URINE SCREEN NEGATIVE (NEGATIVE)
[2023-09-17 16:36] LABS: CANNABINOID URINE SCREEN NEGATIVE (NEGATIVE); ECSTASY MDMA SCREEN URINE NEGATIVE (NEGATIVE); OPIATES URINE SCREEN NEGATIVE (NEGATIVE); PHENCYCLIDINE URINE SCREEN NEGATIVE (NEGATIVE)
[2023-09-17] MEDS: LORAZEPAM 2MG/ML INJ IM ONE (20:56)
[2023-09-17] MEDS: HALOPERIDOL LACTATE 5MG/ML VIAL IM ONE (20:56)
[2023-09-18] MEDS: ACETAMINOPHEN 325MG TABLET PO ONE (05:30)
[2023-09-18] MEDS: LORAZEPAM 2MG/ML INJ IM ONE ×2 (07:52→09:58)
[2023-09-18] MEDS: OLANZAPINE 10 MG/VIAL IM ONE ×2 (07:52→11:40)
[2023-09-18] MEDS: DIPHENHYDRAMINE 50MG/ML VIAL IM PRN (09:13)
[2023-09-18 09:15] VITALS: O2SAT 98
[2023-09-18] MEDS: DIPHENHYDRAMINE 50MG/ML VIAL IM ONE (15:33)
[2023-09-18] MEDS: HALOPERIDOL LACTATE 5MG/ML VIAL IM ONE (15:33)
[2023-09-18 17:50] VITALS: BP 136/78; PULSE 88; RESP 16; TEMP 98.2
== END 2023-09-18 23:30 | disposition home or self-care (01) ==
LOC: ER 09:58
DX: S61.411A Laceration without foreign body of right hand, initial encounter (principal); F31.9 Bipolar disorder, unspecified; Z88.0 Allergy status to penicillin; Z20.822 Contact with and (suspected) exposure to COVID-19; Z88.2 Allergy status to sulfonamides; X58.XXXA Exposure to other specified factors, initial encounter; Y93.89 Activity, other specified; Y92.89 Other specified places as the place of occurrence of the external cause; Y99.8 Other external cause status
CPT/HCPCS: 80053; 80305; 81003; 80307; 80329; 80320; 85025; 36415; 73130; 90715; 12002; 90471; 96372 ×2; 99291; 87426; J1630 ×2; J3490 ×2; J2060 ×2; Z7610 ×7; J1200; G0480

== ENCOUNTER 2023-10-09 07:45 | Emergency (ER) | payer MEDICAID ==
[~2023-10-09] VITALS: Ht 177.8 cm; Wt 90.0 kg
[2023-10-09 07:52] VITALS: TEMP 98; O2SAT 98
[2023-10-09] MEDS: KETOROLAC 30MG/ML VIAL IV STA (08:30)
[2023-10-09] MEDS: ONDANSETRON HCL 4MG/2ML INJ IV STA (08:31)
[2023-10-09 08:49] LABS: BASOPHILS % 1.5 % (0.0-2.0); EOSINOPHILS % 5.3 % (0.0-5.0); HEMATOCRIT. 39.2 % (42.0-52.0); HEMOGLOBIN. 12.8 g/dL (14.0-18.0); LYMPHOCYTES % 19.2 % (20.0-50.0); MEAN CORPUSCULAR HEMOGLOBIN 27.1 pg (28.0-32.0); MEAN CORPUSCULAR HGB CONC 32.7 g/dL (31.0-37.0); MEAN CORPUSCULAR VOLUME 82.6 fL (80.0-94.0); MEAN PLATELET VOLUME 8.8 fl (7.4-10.4); MONOCYTES % 7.2 % (2.0-8.0); NEUTROPHILS % 66.8 % (40.0-76.0); PLATELET 210 x1000/uL (130-400); RED BLOOD CELL COUNT 4.74 mill/uL (4.7-6.1); RED CELL DISTRIBUTION WIDTH 15.1 % (11.6-14.6)
[2023-10-09 08:50] LABS: CHLORIDE 102 mEq/L (98-107); POTASSIUM 4.6 mEq/L (3.5-5.1); SODIUM 136 mEq/L (136-145)
[2023-10-09 08:51] LABS: CALCIUM 9.9 mg/dL (8.7-10.4); CARBON DIOXIDE 29 mEq/L (21-32)
[2023-10-09 08:56] LABS: CREATININE 0.7 mg/dL (0.6-1.3); GLUCOSE 78 mg/dL (70-105); UREA NITROGEN BLOOD 10 mg/dL (9-23)
[2023-10-09 08:58] LABS: ALANINE AMINOTRANSFERASE 11 IU/L (10-49); ALBUMIN 3.9 g/dL (3.2-4.8); ASPARTATE AMINOTRANSFERASE 20 IU/L (<34); BILIRUBIN TOTAL 0.2 mg/dL (0.1-1.0)
[2023-10-09 08:59] LABS: PROTEIN TOTAL 7.6 g/dL (6.0-8.3)
[2023-10-09] MEDS ORDERED: TOPUD PO (09:39)
[2023-10-09 09:47] VITALS: BP 120/71; PULSE 75; RESP 17
[2023-10-09 09:57] LABS: PROTHROMBIN TIME 11.3 sec (9.6-11.0)
[2023-10-09 10:00] LABS: COLOR URINE YELLOW (YELLOW)
[2023-10-09 10:01] LABS: CLARITY URINE CLEAR (CLEAR); GLUCOSE URINE NEGATIVE (NEGATIVE); KETONES URINE NEGATIVE (NEGATIVE); LEUKOCYTE ESTERASE URINE NEGATIVE (NEGATIVE); NITRITE URINE NEGATIVE (NEGATIVE); OCCULT BLOOD URINE NEGATIVE (NEGATIVE); PROTEIN URINE NEGATIVE (NEGATIVE); UROBILINOGEN URINE 0.2 E.U./dL (0.2-1.0)
== END 2023-10-09 11:36 | disposition home or self-care (01) ==
LOC: ER 07:45
DX: R10.84 Generalized abdominal pain (principal); E11.9 Type 2 diabetes mellitus without complications; F20.9 Schizophrenia, unspecified; Z88.0 Allergy status to penicillin; Z88.2 Allergy status to sulfonamides
CPT/HCPCS: 80053; 81003; 85025; 85610; 36415; 96374; 96375; 99285; J1885; J2405; Z7610 ×2

== ENCOUNTER 2023-10-10 06:35 | Emergency (ER) | payer MEDICAID ==
[~2023-10-10] VITALS: Ht 170.2 cm; Wt 82.0 kg
[~2023-10-10 06:35] MED LIST changes: +TOPUD PO
[2023-10-10 07:52] LABS: EOSINOPHILS % 7.3 % (0.0-5.0); HEMATOCRIT. 35.4 % (42.0-52.0); LYMPHOCYTES % 28.3 % (20.0-50.0); MEAN CORPUSCULAR HEMOGLOBIN 27.4 pg (28.0-32.0); MEAN CORPUSCULAR VOLUME 80.7 fL (80.0-94.0); MEAN PLATELET VOLUME 7.9 fl (7.4-10.4); MONOCYTES % 8.1 % (2.0-8.0); NEUTROPHILS % 55.3 % (40.0-76.0); PLATELET 201 x1000/uL (130-400); RED BLOOD CELL COUNT 4.39 mill/uL (4.7-6.1); RED CELL DISTRIBUTION WIDTH 15.1 % (11.6-14.6); WHITE BLOOD COUNT 5.2 x1000/uL (4.5-11.0)
[2023-10-10 07:59] LABS: CHLORIDE 97 mEq/L (98-107); POTASSIUM 4.1 mEq/L (3.5-5.1); SODIUM 132 mEq/L (136-145)
[2023-10-10 08:00] LABS: CARBON DIOXIDE 31 mEq/L (21-32)
[2023-10-10 08:01] LABS: CALCIUM 8.9 mg/dL (8.7-10.4)
[2023-10-10 08:05] LABS: CREATININE 0.9 mg/dL (0.6-1.3); GLUCOSE 100 mg/dL (70-105); UREA NITROGEN BLOOD 8 mg/dL (9-23)
[2023-10-10 08:06] LABS: ETHANOL BLOOD < 10 mg/dL (<10)
[2023-10-10 08:58] LABS: ACETAMINOPHEN < 2 ug/mL (10-30)
[2023-10-10 09:56] LABS: *AMPHETAMINES SCREEN URINE NEGATIVE (NEGATIVE); *BARBITURATES SCREEN URINE NEGATIVE (NEGATIVE); *BENZODIAZEPINES SCREEN URINE NEGATIVE (NEGATIVE); *COCAINE SCREEN URINE NEGATIVE (NEGATIVE); METHADONE URINE SCREEN NEGATIVE (NEGATIVE); OPIATES URINE SCREEN NEGATIVE (NEGATIVE)
[2023-10-10 09:57] LABS: CANNABINOID URINE SCREEN NEGATIVE (NEGATIVE); ECSTASY MDMA SCREEN URINE NEGATIVE (NEGATIVE); PHENCYCLIDINE URINE SCREEN NEGATIVE (NEGATIVE)
[2023-10-12] MEDS: SODIUM CHLORIDE 0.9% 1,000 ML IV ONE (06:00)
[2023-10-12] MEDS: METOCLOPRAMIDE HCL 10MG/2ML VIAL IV NR (06:00)
[2023-10-12 06:27] LABS: CHLORIDE 99 mEq/L (98-107); POTASSIUM 3.8 mEq/L (3.5-5.1); SODIUM 136 mEq/L (136-145)
[2023-10-12 06:28] LABS: CARBON DIOXIDE 31 mEq/L (21-32)
[2023-10-12 06:33] LABS: CREATININE 0.9 mg/dL (0.6-1.3); GLUCOSE 159 mg/dL (70-105); UREA NITROGEN BLOOD 9 mg/dL (9-23)
[2023-10-12 06:35] LABS: ALANINE AMINOTRANSFERASE 24 IU/L (10-49); ALBUMIN 4.4 g/dL (3.2-4.8); ASPARTATE AMINOTRANSFERASE 20 IU/L (<34); BILIRUBIN TOTAL 0.4 mg/dL (0.1-1.0)
[2023-10-12 06:36] LABS: PROTEIN TOTAL 8.8 g/dL (6.0-8.3)
[2023-10-12 10:04] LABS: TROPONIN I HIGH SENSITIVITY 7 ng/L (3.0-53)
[2023-10-12 16:18] LABS: TROPONIN I HIGH SENSITIVITY 9 ng/L (3.0-53)
[2023-10-13] MEDS: METFORMIN HCL 500MG TABLET PO SCH (09:28)
[2023-10-14] MEDS: RISPERIDONE 1MG TABLET PO SCH (08:56)
[2023-10-14] MEDS: HALOPERIDOL 5MG TABLET PO ONE (08:56)
[2023-10-14] MEDS: DIVALPROEX SODIUM 500MG ER TABLET PO ONE (08:56)
[2023-10-14] MEDS: QUETIAPINE FUMARATE 50MG TABLET PO SCH (22:12)
[2023-10-14] MEDS: TRAZODONE HCL 50MG TABLET PO SCH (22:12)
[2023-10-15] MEDS: LORAZEPAM 1MG TABLET PO ONE (17:45)
[2023-10-15] MEDS: LORAZEPAM 2MG/ML INJ IM STA (18:00)
[2023-10-16] MEDS: LORAZEPAM 1MG TABLET PO ONE (06:28)
[2023-10-16] MEDS: LORAZEPAM 2MG/ML INJ IM ONE ×2 (08:20→17:48)
[2023-10-16] MEDS: OLANZAPINE 10 MG/VIAL IM ONE (09:00)
[2023-10-16] MEDS: HALOPERIDOL LACTATE 5MG/ML VIAL IM ONE (17:48)
[2023-10-16] MEDS: DIPHENHYDRAMINE 50MG/ML VIAL IM ONE (17:49)
[2023-10-17] MEDS: OLANZAPINE 10 MG/VIAL IM ONE (06:03)
[2023-10-17] MEDS: HALOPERIDOL LACTATE 5MG/ML VIAL IM ONE ×2 (06:52→16:58)
[2023-10-17] MEDS: LORAZEPAM 2MG/ML INJ IM ONE ×2 (07:29→16:57)
[2023-10-17] MEDS: DIPHENHYDRAMINE 50MG/ML VIAL IM ONE ×2 (07:29→16:58)
[2023-10-18] MEDS: LORAZEPAM 2MG/ML INJ IM ONE ×5 (06:11→22:20)
[2023-10-18] MEDS: OLANZAPINE 10 MG/VIAL IM ONE ×3 (06:11→23:34)
[2023-10-18] MEDS ORDERED: B50 MT (15:28)
[2023-10-18] MEDS ORDERED: TRAZ-251 PO (15:28)
[2023-10-18] MEDS: DIPHENHYDRAMINE 50MG/ML VIAL IM ONE ×2 (17:47→22:15)
[2023-10-18] MEDS: HALOPERIDOL LACTATE 5MG/ML VIAL IM ONE ×2 (17:47→22:21)
[2023-10-19 01:30] VITALS: O2SAT 99
[2023-10-19] MEDS: KETAMINE HCL 50 MG/ML 10ML IM ONE (04:20)
[2023-10-19] MEDS: HALOPERIDOL LACTATE 5MG/ML VIAL IM ONE (11:00)
[2023-10-19] MEDS: LORAZEPAM 2MG/ML INJ IM ONE (11:00)
[2023-10-19] MEDS: DIPHENHYDRAMINE 50MG/ML VIAL IM ONE ×2 (11:00→20:29)
[2023-10-19] MEDS: OLANZAPINE 10 MG/VIAL IM ONE (14:15)
[2023-10-19] MEDS ORDERED: ONDANSETRON HCL 4MG/2ML INJ IV PRN (18:15)
[2023-10-19] MEDS ORDERED: CLONIDINE 0.1MG TABLET PO PRN (18:15)
[2023-10-19] MEDS ORDERED: ACETAMINOPHEN 325MG TABLET PO PRN (18:15)
[2023-10-19] MEDS: ENOXAPARIN 40MG/0.4ML SYR SUBCUT SCH (20:29)
[2023-10-19] MEDS: LORAZEPAM 2MG/ML INJ IV ONE (20:29)
[2023-10-20] MEDS: HALOPERIDOL LACTATE 5MG/ML VIAL IM NR (04:40)
[2023-10-20] MEDS: LORAZEPAM 2MG/ML INJ IM NR (04:40)
[2023-10-20] MEDS: DIPHENHYDRAMINE 50MG/ML VIAL IM NR (04:41)
[2023-10-20 06:13] LABS: BASOPHILS % 0.9 % (0.0-2.0); EOSINOPHILS % 7.5 % (0.0-5.0); HEMATOCRIT. 41.2 % (42.0-52.0); HEMOGLOBIN. 13.8 g/dL (14.0-18.0); LYMPHOCYTES % 28.7 % (20.0-50.0); MEAN CORPUSCULAR HEMOGLOBIN 27.2 pg (28.0-32.0); MEAN CORPUSCULAR HGB CONC 33.6 g/dL (31.0-37.0); MEAN CORPUSCULAR VOLUME 81.1 fL (80.0-94.0); MEAN PLATELET VOLUME 7.6 fl (7.4-10.4); MONOCYTES % 8.2 % (2.0-8.0); NEUTROPHILS % 54.7 % (40.0-76.0); PLATELET 331 x1000/uL (130-400); RED BLOOD CELL COUNT 5.08 mill/uL (4.7-6.1); RED CELL DISTRIBUTION WIDTH 14.8 % (11.6-14.6); WHITE BLOOD COUNT 6.3 x1000/uL (4.5-11.0)
[2023-10-20 06:22] LABS: CARBON DIOXIDE 24 mEq/L (21-32); CHLORIDE 102 mEq/L (98-107); POTASSIUM 4.5 mEq/L (3.5-5.1); SODIUM 135 mEq/L (136-145)
[2023-10-20 06:23] LABS: CALCIUM 9.6 mg/dL (8.7-10.4)
[2023-10-20 06:28] LABS: GLUCOSE 220 mg/dL (70-105); UREA NITROGEN BLOOD 15 mg/dL (9-23)
[2023-10-20] MEDS ORDERED: NO (08:44)
[2023-10-20] MEDS: GLIPIZIDE 5MG TABLET PO SCH (09:00)
[2023-10-20 10:00] VITALS: BP 142/70; PULSE 107; RESP 20; TEMP 98.8
== END 2023-10-20 10:17 | disposition home or self-care (01) ==
LOC: ER 06:35 → EDBEDREQ 10-19 12:48 → EDBEDREQTM 10-19 13:24 → EDBEDREQ 10-20 07:51 → CANBEDREQ 10-20 10:03 → ER 10-20 10:17
DX: F84.0 Autistic disorder (principal); R41.0 Disorientation, unspecified; E11.9 Type 2 diabetes mellitus without complications; F20.9 Schizophrenia, unspecified; Z20.822 Contact with and (suspected) exposure to COVID-19
CPT/HCPCS: 80053; 80305; 80048 ×2; 80307; 80329; 80320; 82962; 83690; 85025 ×2; 84484; 36415 ×2; 99285; 87426; 71045; 70450; 74176; 93005; 96361; 96374; 96372 ×6; 96375; J2765; J7030; J1630 ×6; Z7610 ×5; J2060 ×6; J3490 ×4; J1200 ×5; J1650; G0480

== ENCOUNTER 2024-05-13 10:34 | Emergency (ER) | payer MEDICAID ==
[~2024-05-13] VITALS: Ht 182.9 cm; Wt 100.0 kg
[~2024-05-13 10:34] MED LIST changes: +B50 MT; +NO
[2024-05-13 10:36] VITALS: TEMP 98.4; O2SAT 98
[2024-05-13 13:56] VITALS: BP 115/69; PULSE 83; RESP 17; O2SAT 96
== END 2024-05-13 14:02 | disposition home or self-care (01) ==
LOC: ER 10:34
DX: S60.511A Abrasion of right hand, initial encounter (principal); E11.9 Type 2 diabetes mellitus without complications; Z88.0 Allergy status to penicillin; Z88.2 Allergy status to sulfonamides; Z79.899 Other long term (current) drug therapy; Z98.890 Other specified postprocedural states; Z86.59 Personal history of other mental and behavioral disorders; W25.XXXA Contact with sharp glass, initial encounter; Y93.89 Activity, other specified; Y92.89 Other specified places as the place of occurrence of the external cause; Y99.8 Other external cause status
CPT/HCPCS: 99283; Z7610

== ENCOUNTER 2024-06-10 00:37 | Emergency (ER) | payer MEDICAID ==
[~2024-06-10] VITALS: Ht 182.9 cm; Wt 90.0 kg
[2024-06-10 00:45] VITALS: BP 134/77; PULSE 100; RESP 18; TEMP 98.5; O2SAT 96
[2024-06-10] MEDS ORDERED: LIDOCAINE HCL 1% 20ML VIAL INFIL ONE (01:15)
[2024-06-10] MEDS ORDERED: ACETAMINOPHEN 325MG TABLET PO ONE (02:15)
[2024-06-10] MEDS ORDERED: BO1 TP (02:24)
[2024-06-10] MEDS ORDERED: ACET-2708 MT (02:25)
[2024-06-11] MEDS ORDERED: CLIN-116 MT (01:10)
[2024-06-11] MEDS ORDERED: BO1 TP (01:10)
[2024-07-04] MEDS ORDERED: LISI10TA26 PO (15:24)
[2024-07-04] MEDS ORDERED: LEVE10006 PO (15:24)
[2024-07-04] MEDS ORDERED: LINA145C PO (15:24)
[2024-07-04] MEDS ORDERED: RISP3TAB76 PO (15:24)
[2024-07-04] MEDS ORDERED: ATOR40TA70 PO (15:26)
[2024-07-04] MEDS ORDERED: PANT40TA51 PO (15:26)
[2024-07-04] MEDS ORDERED: DIVA-75 PO (15:26)
[2024-07-04] MEDS ORDERED: CHLO50TA50 PO (15:26)
[2024-07-04] MEDS ORDERED: OXCA300T31 PO (15:26)
[2024-07-04] MEDS ORDERED: OMEG-221 PO (15:34)
[2024-07-04] MEDS ORDERED: QUET50TA23 PO (15:34)
[2024-07-04] MEDS ORDERED: METF-414 PO (15:36)
[2024-07-04] MEDS ORDERED: TRAZ-251 PO (15:36)
[2024-07-04] MEDS ORDERED: PROP10TA10 PO (15:36)
== END 2024-06-10 04:51 | disposition home or self-care (01) ==
LOC: ER 00:58
DX: S61.216A Laceration without foreign body of right little finger without damage to nail, initial encounter (principal); E11.9 Type 2 diabetes mellitus without complications; I10 Essential (primary) hypertension; F20.9 Schizophrenia, unspecified; Z79.899 Other long term (current) drug therapy; Z88.0 Allergy status to penicillin; Z88.2 Allergy status to sulfonamides; W22.01XA Walked into wall, initial encounter; Y93.89 Activity, other specified; Y92.89 Other specified places as the place of occurrence of the external cause; Y99.8 Other external cause status
CPT/HCPCS: 12001; 73120; 99283

== ENCOUNTER 2024-06-10 07:26 | Emergency (ER) | payer MEDICAID ==
[~2024-06-10] VITALS: Ht 177.8 cm; Wt 95.0 kg
[~2024-06-10 07:26] MED LIST changes: +ACET-2708 MT; +BO1 TP
[2024-06-10 07:36] VITALS: TEMP 98.3; O2SAT 98
[2024-06-10 10:08] VITALS: BP 123/61; PULSE 98; RESP 16; O2SAT 99
[2024-06-11] MEDS ORDERED: CLIN-116 MT (01:10)
[2024-06-11] MEDS ORDERED: BO1 TP (01:10)
== END 2024-06-10 10:06 | disposition home or self-care (01) ==
LOC: ER 07:26
DX: S61.216A Laceration without foreign body of right little finger without damage to nail, initial encounter (principal); E11.9 Type 2 diabetes mellitus without complications; I10 Essential (primary) hypertension; F20.9 Schizophrenia, unspecified; F19.90 Other psychoactive substance use, unspecified, uncomplicated; Z79.899 Other long term (current) drug therapy; Z88.0 Allergy status to penicillin; X58.XXXA Exposure to other specified factors, initial encounter; Y93.89 Activity, other specified; Y92.89 Other specified places as the place of occurrence of the external cause; Y99.8 Other external cause status
CPT/HCPCS: 99283

== ENCOUNTER 2024-06-10 23:06 | Emergency (ER) | payer MEDICAID ==
[~2024-06-10] VITALS: Ht 175.3 cm; Wt 82.0 kg
[2024-06-10 23:14] VITALS: BP 133/91; PULSE 109; RESP 18; TEMP 98.1; O2SAT 96
[2024-06-11] MEDS: BACITRACIN ZINC OINT UDPKT TOP ONE (00:45)
[2024-06-11] MEDS: LIDOCAINE HCL/PF 1% 10 MG/ML 5ML VIAL INFIL ONE (00:45)
[2024-06-11] MEDS ORDERED: CLIN-116 MT (01:10)
[2024-06-11] MEDS ORDERED: BO1 TP (01:10)
[2024-06-11] MEDS ORDERED: ALPRAZOLAM 0.25 MG TABLET PO NR (02:15)
[2024-06-11] MEDS ORDERED: ALPRAZOLAM 0.25 MG TABLET PO ONE (02:15)
[2024-06-11] MEDS: LORAZEPAM 2MG/ML INJ IM ONE (02:25)
[2024-06-11] MEDS: CLINDAMYCIN HCL 150MG CAPSULE PO ONE (02:25)
[2024-06-11] MEDS ORDERED: LORAZEPAM 2MG/ML INJ IM ONE (05:30)
== END 2024-06-11 07:33 | disposition home or self-care (01) ==
LOC: ER 23:06
DX: S61.216A Laceration without foreign body of right little finger without damage to nail, initial encounter (principal); E11.9 Type 2 diabetes mellitus without complications; F20.9 Schizophrenia, unspecified; F84.0 Autistic disorder; I10 Essential (primary) hypertension; Z79.84 Long term (current) use of oral hypoglycemic drugs; Z79.899 Other long term (current) drug therapy; Z88.0 Allergy status to penicillin; Z88.2 Allergy status to sulfonamides; W25.XXXA Contact with sharp glass, initial encounter; Y93.89 Activity, other specified; Y92.89 Other specified places as the place of occurrence of the external cause; Y99.8 Other external cause status
CPT/HCPCS: 12002; 99283; 96372; J2060; Z7610; 12001

== ENCOUNTER 2024-06-15 11:41 | Emergency (ER) | payer MEDICAID ==
[~2024-06-15] VITALS: Ht 335.3 cm; Wt 95.0 kg
[~2024-06-15 11:41] MED LIST changes: +CLIN-116 MT
[2024-06-15 11:44] VITALS: O2SAT 97
[2024-06-15] MEDS: IBUPROFEN 600MG TABLET PO ONE (13:55)
[2024-06-15 22:11] VITALS: BP 121/76; PULSE 84; RESP 16; TEMP 36.83628; O2SAT 97
== END 2024-06-15 21:00 | disposition home or self-care (01) ==
LOC: ER 11:41
DX: S60.222A Contusion of left hand, initial encounter (principal); E11.9 Type 2 diabetes mellitus without complications; F20.9 Schizophrenia, unspecified; I10 Essential (primary) hypertension; Z79.84 Long term (current) use of oral hypoglycemic drugs; Z79.899 Other long term (current) drug therapy; Z88.0 Allergy status to penicillin; Z88.2 Allergy status to sulfonamides; W22.01XA Walked into wall, initial encounter; Y93.89 Activity, other specified; Y92.89 Other specified places as the place of occurrence of the external cause; Y99.8 Other external cause status
CPT/HCPCS: 73130; 99285; Z7610; A4606

== ENCOUNTER 2024-06-20 16:27 | Emergency (ER) | payer MEDICAID ==
[~2024-06-20] VITALS: Ht 182.9 cm; Wt 90.0 kg
[2024-06-20 16:30] VITALS: TEMP 36.4; O2SAT 97
[2024-06-20 17:38] VITALS: BP 125/77; PULSE 116; RESP 18; TEMP 97.6
[2024-06-20] MEDS: IBUPROFEN 400MG TABLET PO ONE (17:38)
[2024-06-20] MEDS: ACETAMINOPHEN 500MG TABLET PO ONE (17:38)
== END 2024-06-20 18:47 | disposition home or self-care (01) ==
LOC: ER 16:27
DX: M54.2 Cervicalgia (principal); E11.9 Type 2 diabetes mellitus without complications; F20.9 Schizophrenia, unspecified; I10 Essential (primary) hypertension; Z79.84 Long term (current) use of oral hypoglycemic drugs; Z79.899 Other long term (current) drug therapy; Z88.0 Allergy status to penicillin; Z88.2 Allergy status to sulfonamides
CPT/HCPCS: 99283

== ENCOUNTER 2024-07-06 20:07 | Emergency (ER) | payer MEDICAID ==
[~2024-07-06] VITALS: Ht 175.3 cm; Wt 98.0 kg
[~2024-07-06 20:07] MED LIST changes: -ACET-2708 MT; +ATOR40TA70 PO; -B50 MT; -BO1 TP; +CHLO50TA50 PO; -CLIN-116 MT; -DIVA-18 PO; +DIVA-75 PO; -GLIP5TAB22 MT; -HALO5TAB2 PO; +LEVE10006 PO; +LINA145C PO; +LISI10TA26 PO; -NO; +OMEG-221 PO; +OXCA300T31 PO; +PANT40TA51 PO; +PROP10TA10 PO; -QUET50TA PO; +QUET50TA23 PO; -RISP1 PO; +RISP3TAB76 PO; -TOPUD PO
[2024-07-06 20:13] VITALS: O2SAT 96
[2024-07-06] MEDS: KETOROLAC 30MG/ML VIAL IV STA (21:31)
[2024-07-06 23:04] LABS: BASOPHILS % 1.3 % (0.0-2.0); EOSINOPHILS % 8.2 % (0.0-5.0); HEMATOCRIT. 37.5 % (42.0-52.0); HEMOGLOBIN. 12.5 g/dL (14.0-18.0); LYMPHOCYTES % 36.6 % (20.0-50.0); MEAN CORPUSCULAR HEMOGLOBIN 28.3 pg (28.0-32.0); MEAN CORPUSCULAR HGB CONC 33.3 g/dL (31.0-37.0); MEAN CORPUSCULAR VOLUME 84.9 fL (80.0-94.0); MONOCYTES % 5.3 % (2.0-8.0); NEUTROPHILS % 48.6 % (40.0-76.0); RED BLOOD CELL COUNT 4.42 mill/uL (4.7-6.1); RED CELL DISTRIBUTION WIDTH 13.3 % (11.6-14.6); WHITE BLOOD COUNT 7.8 x1000/uL (4.5-11.0)
[2024-07-06 23:11] LABS: CHLORIDE 101 mEq/L (98-107); POTASSIUM 4.3 mEq/L (3.5-5.1); SODIUM 134 mEq/L (136-145)
[2024-07-06 23:12] LABS: CALCIUM 8.9 mg/dL (8.7-10.4); CARBON DIOXIDE 22 mEq/L (21-32)
[2024-07-06 23:14] LABS: DIFFERENTIAL COMMENT 1
[2024-07-06 23:17] LABS: GLUCOSE 348 mg/dL (70-105); UREA NITROGEN BLOOD 9 mg/dL (9-23)
[2024-07-06 23:18] LABS: LACTIC ACID 3.1 mmol/L (0.4-2.0)
[2024-07-06 23:19] LABS: ALANINE AMINOTRANSFERASE 11 IU/L (10-49); ALBUMIN 3.6 g/dL (3.2-4.8); ASPARTATE AMINOTRANSFERASE 10 IU/L (<34); BILIRUBIN TOTAL 0.2 mg/dL (0.1-1.0); PROTEIN TOTAL 7.1 g/dL (6.0-8.3)
[2024-07-06 23:20] LABS: MEAN PLATELET VOLUME 8.5 fl (7.4-10.4)
[2024-07-06 23:21] LABS: PLATELET 142 x1000/uL (130-400)
[2024-07-06 23:22] LABS: BILIRUBIN DIRECT < 0.1 mg/dL (<=3.0)
[2024-07-06] MEDS: SODIUM CHLORIDE 0.9% 1,000 ML IV ONE (23:26)
[2024-07-07] MEDS: SODIUM CHLORIDE 0.9% 1,000 ML IV ONE (06:56)
[2024-07-07 07:00] LABS: LACTIC ACID 3.1 mmol/L (0.4-2.0)
[2024-07-07 07:54] VITALS: BP 128/68; PULSE 67; RESP 16; TEMP 37.1; O2SAT 98
== END 2024-07-07 08:38 | disposition home or self-care (01) ==
LOC: ER 20:08
DX: R10.9 Unspecified abdominal pain (principal); E11.65 Type 2 diabetes mellitus with hyperglycemia; F84.0 Autistic disorder; G40.909 Epilepsy, unspecified, not intractable, without status epilepticus; Z79.899 Other long term (current) drug therapy; Z88.0 Allergy status to penicillin; Z88.2 Allergy status to sulfonamides
CPT/HCPCS: 80076; 80048; 82962; 83605 ×2; 83690; 85025; 36415; 74176; 96360; 96361 ×2; 99285; J7030; Z7610; 99284

== ENCOUNTER 2024-08-22 07:01 | Emergency (ER) | payer MEDICAID ==
[~2024-08-22] VITALS: Ht 172.7 cm; Wt 91.0 kg
[~2024-08-22 07:01] MED LIST changes: +DIVA-18 PO; -DIVA-75 PO; +DOCU-422 PO; +INSU100I28 SQ; +KEPPSOL PO; -LEVE10006 PO; +MELA5TAB3 PO; -PROP10TA10 PO; +QUET50TA PO; -QUET50TA23 PO; +RISP1 PO; -RISP3TAB76 PO
[2024-08-22 07:12] VITALS: O2SAT 100
[2024-08-22] MEDS: LEVETIRACETAM 1000MG PREMIX 100 ML IV ONE (07:41)
[2024-08-22 07:52] LABS: BASOPHILS % 1.1 % (0.0-2.0); DIFFERENTIAL COMMENT 0; EOSINOPHILS % 5.1 % (0.0-5.0); HEMATOCRIT. 38.8 % (42.0-52.0); HEMOGLOBIN. 12.6 g/dL (14.0-18.0); LYMPHOCYTES % 28.1 % (20.0-50.0); MEAN CORPUSCULAR HEMOGLOBIN 25.8 pg (28.0-32.0); MEAN CORPUSCULAR HGB CONC 32.4 g/dL (31.0-37.0); MEAN CORPUSCULAR VOLUME 79.6 fL (80.0-94.0); MEAN PLATELET VOLUME 8.5 fl (7.4-10.4); MONOCYTES % 7.8 % (2.0-8.0); NEUTROPHILS % 57.9 % (40.0-76.0); PLATELET 257 x1000/uL (130-400); RED BLOOD CELL COUNT 4.87 mill/uL (4.7-6.1); RED CELL DISTRIBUTION WIDTH 13.7 % (11.6-14.6); WHITE BLOOD COUNT 5.4 x1000/uL (4.5-11.0)
[2024-08-22 07:58] LABS: CHLORIDE 107 mEq/L (98-107); POTASSIUM 3.8 mEq/L (3.5-5.1); SODIUM 141 mEq/L (136-145)
[2024-08-22 07:59] LABS: CALCIUM 9.8 mg/dL (8.7-10.4); CARBON DIOXIDE 27 mEq/L (21-32)
[2024-08-22 08:04] LABS: CREATININE 0.7 mg/dL (0.6-1.3); GLUCOSE 145 mg/dL (70-105); UREA NITROGEN BLOOD 10 mg/dL (9-23)
[2024-08-22 08:05] LABS: ETHANOL BLOOD < 10 mg/dL (<10)
[2024-08-22 08:43] LABS: CLARITY URINE CLEAR (CLEAR); COLOR URINE YELLOW (YELLOW); GLUCOSE URINE NEGATIVE (NEGATIVE); KETONES URINE NEGATIVE (NEGATIVE); LEUKOCYTE ESTERASE URINE NEGATIVE (NEGATIVE); NITRITE URINE NEGATIVE (NEGATIVE); OCCULT BLOOD URINE NEGATIVE (NEGATIVE); PROTEIN URINE NEGATIVE (NEGATIVE); SPECIFIC GRAVITY URINE 1.014 (1.005-1.030)
[2024-08-22 09:02] LABS: *AMPHETAMINES SCREEN URINE NEGATIVE (NEGATIVE); *BARBITURATES SCREEN URINE NEGATIVE (NEGATIVE); *BENZODIAZEPINES SCREEN URINE NEGATIVE (NEGATIVE)
[2024-08-22 09:03] LABS: *COCAINE SCREEN URINE NEGATIVE (NEGATIVE); CANNABINOID URINE SCREEN NEGATIVE (NEGATIVE); ECSTASY MDMA SCREEN URINE NEGATIVE (NEGATIVE); METHADONE URINE SCREEN NEGATIVE (NEGATIVE); OPIATES URINE SCREEN NEGATIVE (NEGATIVE); PHENCYCLIDINE URINE SCREEN NEGATIVE (NEGATIVE)
[2024-08-22 14:38] VITALS: BP 117/67; PULSE 80; RESP 18; TEMP 37; O2SAT 100
== END 2024-08-22 14:39 | disposition home or self-care (01) ==
LOC: ER 07:01
DX: G40.909 Epilepsy, unspecified, not intractable, without status epilepticus (principal); E11.9 Type 2 diabetes mellitus without complications; I10 Essential (primary) hypertension; Z88.0 Allergy status to penicillin; Z88.2 Allergy status to sulfonamides; Z79.899 Other long term (current) drug therapy
CPT/HCPCS: 80305; 80048; 81003; 80320; 85025; 36415; 96365; 99285; J1953; G0480

== ENCOUNTER 2025-05-01 13:09 | Emergency (ER) | payer MEDICAID ==
[~2025-05-01] VITALS: Ht 180.3 cm; Wt 115.0 kg
[~2025-05-01 13:09] MED LIST changes: +SENN-215 MT
[2025-05-01 13:23] VITALS: O2SAT 97
[2025-05-01] MEDS: ACETAMINOPHEN 325MG TABLET PO ONE (16:18)
[2025-05-01] MEDS ORDERED: ACET-2708 MT (16:55)
[2025-05-01 17:07] VITALS: BP 142/86; PULSE 90; RESP 16; TEMP 36.9; O2SAT 98
== END 2025-05-01 17:08 | disposition home or self-care (01) ==
LOC: ER 13:09
DX: M79.601 Pain in right arm (principal); E11.9 Type 2 diabetes mellitus without complications; E78.00 Pure hypercholesterolemia, unspecified; I10 Essential (primary) hypertension; D64.9 Anemia, unspecified; Z79.899 Other long term (current) drug therapy; Z88.0 Allergy status to penicillin; Z88.2 Allergy status to sulfonamides
CPT/HCPCS: 73090; 73560; 99284